=== PATIENT | female | born 1985 | race Caucasian/White ===

== ENCOUNTER 2020-01-24 08:25 | Emergency (ER) | payer SELFPAY ==
[~2020-01-24] VITALS: Ht 167.6 cm; Wt 64.0 kg
[2020-01-24 09:23] VITALS: BP 137/86
== END 2020-01-24 09:24 | disposition home or self-care (01) ==
LOC: ER 08:25
DX: Z04.89 Encounter for examination and observation for other specified reasons (principal); Z59.0 Homelessness
CPT/HCPCS: 99283